=== PATIENT | male | born 1990 | race African-American/Black ===

== ENCOUNTER → 2019-12-30 | Emergency (ER) | payer SELFPAY ==
[~2019-12-30] VITALS: Ht 175.3 cm; Wt 154.2 kg
[2019-12-30 00:42] VITALS: BP 146/85
== END | disposition home or self-care (01) ==
LOC: ER 00:17
DX: S12.600A Unspecified displaced fracture of seventh cervical vertebra, initial encounter for closed fracture (principal); S00.03XA Contusion of scalp, initial encounter; M25.532 Pain in left wrist; S89.92XA Unspecified injury of left lower leg, initial encounter; R42 Dizziness and giddiness; Y08.89XA Assault by other specified means, initial encounter; Y93.89 Activity, other specified; Y92.89 Other specified places as the place of occurrence of the external cause; Y99.8 Other external cause status
CPT/HCPCS: 70450; 72125; 73090; 73110; 73590

== ENCOUNTER 2022-07-10 19:51 | Emergency (ER) | payer OTHER ==
[~2022-07-10] VITALS: Ht 175.3 cm; Wt 143.0 kg
[2022-07-10 21:12] LABS: Red Cell Distribution Width 13.8 % (11.8-14.3)
[2022-07-10 21:13] LABS: Basophils # (auto) 0 10 ^3/uL (0-0.2); Basophils % (auto) 0.2 % (0.0-2.0); Eosinophils # (auto) 0.1 10 ^3/uL (0-0.8); Hematocrit 43.3 % (41.0-53.0); Hemoglobin 13.9 g/dL (13.5-17.5); Lymphocytes # (auto) 1.8 10 ^3/uL (0.4-5.4); Mean Corpuscular Hemoglobin 26.4 pg (28.0-32.0); Mean Corpuscular Hgb Conc. 32.1 g/dL (32.0-36.0); Mean Corpuscular Volume 82.3 fL (80.0-100.0); Monocytes # (auto) 0.6 10 ^3/uL (0-1.3); Monocytes % (auto) 6.3 % (0.0-12.0); Neutrophils # (auto) 6.8 10 ^3/uL (1.6-8.6); Neutrophils % (auto) 73.5 % (37.0-80.0); Nucleated Red Blood Cells % 0.1 %; Red Blood Cells 5.26 10^6/uL (4.5-5.90); White Blood Cell 9.3 10^3/uL (4.4-10.8)
[2022-07-10 21:29] LABS: Albumin 3.5 g/dL (3.4-5.0); Potassium 3.9 mmol/L (3.5-5.1)
[2022-07-10 21:33] LABS: Lactic Acid w/Reflex 2.6 mmol/L (0.4-2.0)
[2022-07-10 21:42] LABS: BUN/Creatinine Ratio 21.8; Bilirubin, Total 0.5 mg/dL (0.2-1.0); Total Protein 8.2 g/dL (6.4-8.2)
[2022-07-11] MEDS ORDERED: InsuLIN REG 1unit/0.01ml Soln (100units/ml) IV ONE (04:00)
[2022-07-11] MEDS ORDERED: MORPHINE SULFATE 4 MG/ML SYR/VIAL IV ONE (04:00)
[2022-07-11] MEDS ORDERED: ONDANSETRON HCL 4 MG/2 ML VIAL IV ONE (04:00)
[2022-07-11] MEDS ORDERED: LACTATED RINGER'S 1,000 ML IV ONE (04:00)
[2022-07-11] MEDS ORDERED: INSULIN LANTUS (GLARGINE) 1 /0.01ml (100units/ml) SC ONE (05:45)
[2022-07-11] MEDS ORDERED: SODIUM CHLORIDE 0.9% 1,000 ML IV ONE (06:15)
[2022-07-11 06:34] LABS: Urine Blood Negative /uL (Negative); Urine Specific Gravity 1.032 (1.001-1.035)
[2022-07-11 08:04] VITALS: BP 114/74
== END 2022-07-11 09:04 | disposition home or self-care (01) ==
LOC: ER 19:52
DX: R55 Syncope and collapse (principal); E11.65 Type 2 diabetes mellitus with hyperglycemia; R79.89 Other specified abnormal findings of blood chemistry; E86.0 Dehydration
CPT/HCPCS: 36415; 70450; 71045; 80053; 81001; 82010; 82962; 83605; 85025; 93005; 96361; 96372; 96374; 96375; 99285; J1815; J2270; J2405; J7030